=== PATIENT | male | born 1995 ===

== ENCOUNTER 2021-04-26 11:57 | Emergency (ER) | payer OTHER ==
--- NOTE | 2021-04-26 12:31 | EDM.PDOCBH ---
ED HPI GENERAL MEDICAL PROBLEM - General Chief Complaint: Behavioral/Psych Stated Complaint: HUBERT SANCHEZ Time Seen by Provider: 04/26/21 12:11 Source of Information: Reports: Patient History Limitations: Reports: No Limitations - History of Present Illness INITIAL COMMENTS - FREE TEXT/NARRATIVE: HISTORY AND PHYSICAL: History of present illness: The patient is a 6-year-old male who presents to the emergency room in police custody for suicidal ideation. 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 He is from [place]. The patient states that he has a friend in [place] that he wishes was more than just a friend, however she is . He states that he normally talks to his friend in [place] not daily except on weekends as her is home. Yesterday he talked to his friend who told him that she was breaking up with her , however, they were going to act as if nothing was wrong for th e children. The patient states he became more despondent and thoughts of hurting himself became more prominent. The patient states he has these thoughts almost daily. The patient is a and reach out to the crisis line due to his thoughts. The patient has a plan of using a gun to his head. The patient does have ready access to a gun as he has a gun in his truck. The patient states he did attempt suicide by gun 3 years ago on . He states this was the first holiday he did not have his kids after his divorce. The patient states there was no one to intervene and he was able to stop himself. The patient states that he attempted cutting his self approximately a month ago in an effort to open "get out of my head". He states that this did not help as he did not feel it. The patient states that he has been on bipolar and anxiety meds for over a decade. His current bipolar meds he has been on for 3 to 4 months. His current antidepression anxiety meds he has been on for approximately 7 months. The patient has PTSD and is a . The patient states he has hyperthyroidism and has not taken his medication in 2 days as he was in a mood. The patient is currently out of his meloxicam which he takes for his chronic lower back pain. The patient does have a counselor in [place] that he sees via video every 2 weeks, but he states this does not help. Review of systems: As per history of present illness and below otherwise all systems reviewed and negative. Past medical history: As per history of present illness and as reviewed below otherwise n oncontributory. Surgical history: As per history of present illness and as reviewed below otherwise noncontributory. Social history: See social history for further information Family history: As per history of present illness and as reviewed below otherwise noncontributory. Physical exam: General: Well developed and well nourished. Alert and orientated x 3. Nontoxic in appearance and in no acute distress. Vital signs are stable and have been reviewed by me. Nursing notes were reviewed. HEENT: Atraumatic, normocephalic, pupils equal and reactive bilaterally, negative for conjunctival pallor or scleral icterus, mucous membranes moist, TMs normal bilaterally, throat clear, neck supple, nontender, trachea midline. No drooling or trismus noted. No meningeal signs. No hot potato voice noted. Lungs: Clear to auscultation bilaterally. No wheezes, rales, or rhonchi. Chest nontender. Normal work of breathing, no accessory muscles used. Heart: S1S2, regular rate and rhythm without overt murmur, gallops, or rubs. No JVD. No peripheral edema Abdomen: Soft, nondistended, nontender. Normoactive bowel sounds. Negative for masses or costovertebral tenderness. Skin: Intact, warm, dry. Noted faint thin horizontal scars on left inner forearm. Hematologic: No petechiae or purpra. Mucosa appropriate color and normal nail bed color and refill. Extremities: Atraumatic, moves all extremities per self without difficulty or deficits, negative for cords or calf pain. Neurovascular unremarkable. Neuro: Awake, alert, oriented. Cranial nerves II through XII unremarkable. Cerebellum unremarkable. Motor and sensory unremarkable throughout. Exam nonfocal. Psychiatric: Mood depressive state with a flat affect. Normal thought process. Answering questions appropriately. Notes: *This patient was seen and evaluated during the 2019 SARS-CoV-2 novel coronavirus pandemic period. Community viral transmission is ongoing at time of this encounter and the emergency department is operating under pandemic response procedures. As stated above the patient is a 26-year-old male who presents to the emergency department in police custody for thoughts of suicide with a gun. The patient is from [place] and was supposed to be driving but work 3 days ago due to a migraine and personal issues. After talking with the patient I have decided that he is suicidal and he is agreeable to inpatient psych admission. The patient does seem to hedge on stating I think I need help but if I were to leave I would just go home. As the patient has readily access to handguns I will put a hold for psych treatment on the patient. I have ordered a behavioral health work-up. The patient's blood work is unremarkable. The patient's salicylate and acetaminophen levels are within normal limits. The patient's alcohol is less than 3. The patient's drug screen is negative. The patient's TSH is within normal limits. I called my not one call and they do not have a bed. I called [facility] in [place] and talked with Dr. Ashleigh Gomez and they do have a psych bed. I have completed the paperwork for the mental health hold. The patient is to be transferred ported via EMS. The patient's transfer is delayed as we are waiting for EMS transportation. The patient has verbalized wanting to leave and I have informed the patient that due to his suicidal ideation I am unable to let him breathe. The patient is aware that if he leaves we will be forced to call the police and he will be held in nursing home on suicide watch overnight. At present the patient is in bed. EMS is supposed to be available for transportation at 19: 30. The patient is aware. Diagnostics: CBC, CMP, TSH, EtOH, acetaminophen, salicylate, EKG, urine drug screen, urinalysis Therapeutics: Toradol 60 mg IM Impression: Suicidal ideation Definitive disposition and diagnosis as appropriate pending reevaluation and review of above. - Related Data Allergies Allergy/AdvReac Type Severity Reaction Status Date / Time No Known Allergies Allergy Verified 04/26/21 12:22 Home Meds: Home Meds . [Unable to Verify Home Med List] 04/26/21 [History] Past Medical History HEENT History: Reports: None Cardiovascular History: Reports: Hypertension Respiratory History: Reports: None Gastrointestinal History: Reports: None Genitourinary History: Reports: None Musculoskeletal History: Reports: None Neurological History: Reports: None Psychiatric History: Reports: Anxiety, Bipolar, Depression, PTSD Endocrine/Metabolic History: Reports: Hypothyroidism Hematologic History: Reports: None Immunologic History: Reports: None Oncologic (Cancer) History: Reports: None Dermatologic History: Reports: None - Infectious Disease History Infectious Disease History: Reports: None - Past Surgical History Head Surgeries/Procedures: Reports: None HEENT Surgical History: Reports: None Cardiovascular Surgical History: Reports: None Respiratory Surgical History: Reports: None GI Surgical History: Reports: None Male Surgical History: Reports: None Endocrine Surgical History: Reports: None Neurological Surgical History: Reports: None Musculoskeletal Surgical History: Reports: None Oncologic Surgical History: Reports: None Dermatological Surgical History: Reports: None Social & Family History - Family History Family Medical History: No Pertinent Family History - Tobacco Use Tobacco Use Status *Q: Never Tobacco User Second Hand Smoke Exposure: No - Caffeine Use Caffeine Use: Reports: None - Recreational Drug Use Recreational Drug Use: No ED ROS GENERAL - Review of Systems Review Of Systems: Comprehensive ROS is negative, except as noted in HPI. ED EXAM, BEHAVIORAL HEALTH - Physical Exam Exam: See Below (See dictation) COURSE, BEHAVIORAL HEALTH COMP - Course Vital Signs: Last Vital Signs Temp 97.5 F 04/26/21 12:20 Pulse 80 04/26/21 17:08 Resp 18 04/26/21 12:20 BP 139/77 04/26/21 17:08 Pulse Ox 95 04/26/21 17:08 Orders, Labs, Meds: Active Orders 24 hr Category Date Time Status Suicide Precautions [OM.PC] Q30M Ot 04/26/21 12:30 Ordered Suicide Precautions [OM.PC] Q30M Ot 04/26/21 13:00 Ordered Suicide Precautions [OM.PC] Q30M Ot 04/26/21 13:30 Ordered Suicide Precautions [OM.PC] Q30M Oth 04/26/21 14:00 Ordered Suicide Precautions [OM.PC] Q30M Oth 04/26/21 14:30 Ordered Suicide Precautions [OM.PC] Q30M Oth 04/26/21 15:00 Ordered Suicide Precautions [OM.PC] Q30M Ot 04/26/21 15:30 Ordered Suicide Precautions [OM.PC] Q30M Oth 04/26/21 16:00 Ordered Suicide Precautions [OM.PC] Q30M Ot 04/26/21 16:30 Ordered Suicide Precautions [OM.PC] Q30M Oth 04/26/21 17:00 Ordered Suicide Precautions [OM.PC] Q30M Ot 04/26/21 17:30 Ordered Suicide Precautions [OM.PC] Q30M Ot 04/26/21 18:00 Ordered Suicide Precautions [OM.PC] Q30M Ot 04/26/21 18:30 Ordered Suicide Precautions [OM.PC] Q30M Ot 04/26/21 19:00 Ordered Suicide Precautions [OM.PC] Q30M Ot 04/26/21 19:30 Ordered Laboratory Tests 04/26/21 04/26/21 04/26/21 Range/Units 12:30 12:31 12:37 WBC (4.0-11.0) K/uL RBC (4.50-5.90) M/uL Hgb (13.0-17.0) g/dL Hct (38.0-50.0) % MCV (80.0-98.0) fL MCH (27.0-32.0) pg MCHC (31.0-37.0) g/dL RDW Std Deviation (28.0-62.0) fl RDW Coeff of Tram (11.0-15.0) % Plt Count (150-400) K/uL MPV (7.40-12.00) fL Neut % (Auto) (48.0-80.0) % Lymph % (Auto) (16.0-40.0) % [place] % (Auto) (0.0-15.0) % Eos % (Auto) (0.0-7.0) % Baso % (Auto) (0.0-1.5) % Neut # (Auto) (1.4-5.7) K/uL Lymph # (Auto) (0.6-2.4) K/uL [place] # (Auto) (0.0-0.8) K/uL Eos # (Auto) (0.0-0.7) K/uL Baso # (Auto) (0.0-0.1) K/uL Nucleated RBC % /100WBC Nucleated RBCs # K/uL Sodium (136-148) mmol/L Potassium (3.5-5.1) mmol/L Chloride (98-107) mmol/L Carbon Dioxide (21.0-32.0) mmol/L BUN (7.0-18.0) mg/dL Creatinine (0.8-1.3) mg/dL Est Cr Clr Drug Dosing mL/min Estimated GFR (MDRD) ml/min Glucose (74-106) mg/dL Calcium (8.5-10.1) mg/dL Magnesium (1.8-2.4) mg/dL Total Bilirubin (0.2-1.0) mg/dL AST (15-37) IU/L ALT (14-63) IU/L Alkaline Phosphatase (46-116) U/L Total Protein (6.4-8.2) g/dL Albumin (3.4-5.0) g/dL Globulin (2.6-4.0) g/dL Albumin/Globulin Ratio (0.9-1.6) TSH, Ultra Sensitive (0.36-3.74) uIU/mL Urine Color YELLOW Urine Appearance CLEAR Urine pH 7.5 (5.0-8.0) Ur Specific [place] 1.025 (1.001-1.035) Urine Protein NEGATIVE (NEGATIVE) mg/dL Urine Glucose (UA) NEGATIVE (NEGATIVE) mg/dL Urine Ketones NEGATIVE (NEGATIVE) mg/dL Urine Occult Blood NEGATIVE (NEGATIVE) Urine Nitrite NEGATIVE (NEGATIVE) Urine Bilirubin NEGATIVE (NEGATIVE) Urine Urobilinogen 0.2 (<2.0) EU/dL Ur Leukocyte Esterase NEGATIVE (NEGATIVE) Urine RBC 0-1 (0-2/HPF) Urine WBC 0-2 (0-5/HPF) Ur Epithelial Cells RARE (NONE-FEW) Urine Bacteria RARE (NEGATIVE) Salicylates (0-20) mg/dL Urine Opiates Screen NEGATIVE (NEGATIVE) Ur Oxycodone Screen NEGATIVE (NEGATIVE) Urine Methadone Screen NEGATIVE (NEGATIVE) Acetaminophen ug/mL Ur Barbiturates Screen NEGATIVE (NEGATIVE) Ur Phencyclidine Scrn NEGATIVE (NEGATIVE) Ur Amphetamine Screen NEGATIVE (NEGATIVE) U Methamphetamines Scrn NEGATIVE (NEGATIVE) U Benzodiazepines Scrn NEGATIVE (NEGATIVE) U Cocaine Metab Screen NEGATIVE (NEGATIVE) U Marijuana (THC) Screen NEGATIVE (NEGATIVE) Ethyl Alcohol mg/dL SARS-CoV-2 RNA ([place]) NEGATIVE (NEGATIVE) 04/26/21 04/26/21 Range/Units 12:39 12:39 WBC 9.45 (4.0-11.0) K/uL RBC 5.46 (4.50-5.90) M/uL Hgb 16.0 (13.0-17.0) g/dL Hct 48.5 (38.0-50.0) % MCV 88.8 (80.0-98.0) fL MCH 29.3 (27.0-32.0) pg MCHC 33.0 (31.0-37.0) g/dL RDW Std Deviation 42.5 (28.0-62.0) fl RDW Coeff of Tram 13 (11.0-15.0) % Plt Count 202 (150-400) K/uL MPV 12.50 H (7.40-12.00) fL Neut % (Auto) 59.8 (48.0-80.0) % Lymph % (Auto) 31.6 (16.0-40.0) % [place] % (Auto) 6.7 (0.0-15.0) % Eos % (Auto) 1.6 (0.0-7.0) % Baso % (Auto) 0.3 (0.0-1.5) % Neut # (Auto) 5.7 (1.4-5.7) K/uL Lymph # (Auto) 3.0 H (0.6-2.4) K/uL [place] # (Auto) 0.6 (0.0-0.8) K/uL Eos # (Auto) 0.2 (0.0-0.7) K/uL Baso # (Auto) 0.0 (0.0-0.1) K/uL Nucleated RBC % 0.0 /100WBC Nucleated RBCs # 0 K/uL Sodium 141 (136-148) mmol/L Potassium 4.0 (3.5-5.1) mmol/L Chloride 104 (98-107) mmol/L Carbon Dioxide 29.2 (21.0-32.0) mmol/L BUN 14 (7.0-18.0) mg/dL Creatinine 1.1 (0.8-1.3) mg/dL Est Cr Clr Drug Dosing 129.25 mL/min Estimated GFR (MDRD) > 60.0 ml/min Glucose 99 (74-106) mg/dL Calcium 9.3 (8.5-10.1) mg/dL Magnesium 2.2 (1.8-2.4) mg/dL Total Bilirubin 0.7 (0.2-1.0) mg/dL AST 23 (15-37) IU/L ALT 54 (14-63) IU/L Alkaline Phosphatase 62 (46-116) U/L Total Protein 8.2 (6.4-8.2) g/dL Albumin 4.7 (3.4-5.0) g/dL Globulin 3.5 (2.6-4.0) g/dL Albumin/Globulin Ratio 1.3 (0.9-1.6) TSH, Ultra Sensitive 2.42 (0.36-3.74) uIU/mL Urine Color Urine Appearance Urine pH (5.0-8.0) Ur Specific [place] (1.001-1.035) Urine Protein (NEGATIVE) mg/dL Urine Glucose (UA) (NEGATIVE) mg/dL Urine Ketones (NEGATIVE) mg/dL Urine Occult Blood (NEGATIVE) Urine Nitrite (NEGATIVE) Urine Bilirubin (NEGATIVE) Urine Urobilinogen (<2.0) EU/dL Ur Leukocyte Esterase (NEGATIVE) Urine RBC (0-2/HPF) Urine WBC (0-5/HPF) Ur Epithelial Cells (NONE-FEW) Urine Bacteria (NEGATIVE) Salicylates 0.5 (0-20) mg/dL Urine Opiates Screen (NEGATIVE) Ur Oxycodone Screen (NEGATIVE) Urine Methadone Screen (NEGATIVE) Acetaminophen <2.0 ug/mL Ur Barbiturates Screen (NEGATIVE) Ur Phencyclidine Scrn (NEGATIVE) Ur Amphetamine Screen (NEGATIVE) U Methamphetamines Scrn (NEGATIVE) U Benzodiazepines Scrn (NEGATIVE) U Cocaine Metab Screen (NEGATIVE) U Marijuana (THC) Screen (NEGATIVE) Ethyl Alcohol < 3.0 mg/dL SARS-CoV-2 RNA ([place]) (NEGATIVE) Medications Discontinued Medications Generic Name Dose Route Start Last Admin Trade Name Freq PRN Reason Stop Dose Admin Ketorolac Tromethamine 60 mg 04/26/21 13:15 04/26/21 13:35 Ketorolac 60 Mg/2 Ml Sdv IM 04/26/21 13:16 60 mg ONETIME ONE Administration Departure - Departure Time of Disposition: 13:59 Disposition: DC/Tfer to Psych Hosp/Unit 65 Condition: Good Clinical Impression: Self-harm, Suicidal intent - Discharge Information *PRESCRIPTION DRUG MONITORING PROGRAM REVIEWED*: Not Applicable *COPY OF PRESCRIPTION DRUG MONITORING REPORT IN PATIENT FLORES: Not Applicable Referrals: PCP,None [Ordering Only Provider] - Forms: ED Department Discharge Sepsis Event Note (ED) - Evaluation Sepsis Screening Result: No Definite Risk - Focused Exam Vital Signs: Vital Signs Temp Pulse Resp BP Pulse Ox 04/26/21 17:08 80 139/77 95 04/26/21 13:38 86 147/88 H 97 04/26/21 12:49 83 156/97 H 97 04/26/21 12:20 97.5 F 80 18 149/97 H 98 04/26/21 12:12 79 149/97 H 98 - My Orders Last 24 Hours: My Active Orders 04/26/21 12:30 Suicide Precautions [OM.PC] Q30M 04/26/21 13:00 Suicide Precautions [OM.PC] Q30M 04/26/21 13:30 Suicide Precautions [OM.PC] Q30M 04/26/21 14:00 Suicide Precautions [OM.PC] Q30M 04/26/21 14:30 Suicide Precautions [OM.PC] Q30M 04/26/21 15:00 Suicide Precautions [OM.PC] Q30M 04/26/21 15:30 Suicide Precautions [OM.PC] Q30M 04/26/21 16:00 Suicide Precautions [OM.PC] Q30M 04/26/21 16:30 Suicide Precautions [OM.PC] Q30M 04/26/21 17:00 Suicide Precautions [OM.PC] Q30M 04/26/21 17:30 Suicide Precautions [OM.PC] Q30M 04/26/21 18:00 Suicide Precautions [OM.PC] Q30M 04/26/21 18:30 Suicide Precautions [OM.PC] Q30M 04/26/21 19:00 Suicide Precautions [OM.PC] Q30M 04/26/21 19:30 Suicide Precautions [OM.PC] Q30M - Assessment/Plan Last 24 Hours: My Active Orders 04/26/21 12:30 Suicide Precautions [OM.PC] Q30M 04/26/21 13:00 Suicide Precautions [OM.PC] Q30M 04/26/21 13:30 Suicide Precautions [OM.PC] Q30M 04/26/21 14:00 Suicide Precautions [OM.PC] Q30M 04/26/21 14:30 Suicide Precautions [OM.PC] Q30M 04/26/21 15:00 Suicide Precautions [OM.PC] Q30M 04/26/21 15:30 Suicide Precautions [OM.PC] Q30M 04/26/21 16:00 Suicide Precautions [OM.PC] Q30M 04/26/21 16:30 Suicide Precautions [OM.PC] Q30M 04/26/21 17:00 Suicide Precautions [OM.PC] Q30M 04/26/21 17:30 Suicide Precautions [OM.PC] Q30M 04/26/21 18:00 Suicide Precautions [OM.PC] Q30M 04/26/21 18:30 Suicide Precautions [OM.PC] Q30M 04/26/21 19:00 Suicide Precautions [OM.PC] Q30M 04/26/21 19:30 Suicide Precautions [OM.PC] Q30M
[2021-04-26 13:14] LABS: ACETAMINOPHEN <2.0 ug/mL; BLOOD UREA NITROGEN,BUN 14 mg/dL (7.0-18.0); CARBON DIOXIDE,CO2 29.2 mmol/L (21.0-32.0); CHLORIDE,CL 104 mmol/L (98-107); GLUCOSE RANDOM 99 mg/dL (74-106); SODIUM,NA 141 mmol/L (136-148)
[2021-04-26] MEDS ORDERED: Ketorolac 60 MG/2 ML SDV IM ONE (13:15)
--- NOTE | 2021-04-26 13:50 | PCM.EKG ---
#1 Interpretation EKG Date: 04/26/21 Time: 13:36 Rhythm: NSR Rate (Beats/Min): 79 [place]: Normal P-Wave: Present QRS: Normal ST-T: Normal QT: Normal Comparison: NA - No Prior EKG EKG Interpretation Comments: Sinus Rhythm
== END 2021-04-26 19:48 ==
LOC: MW.ED 11:57
DX: F32.9 Major depressive disorder, single episode, unspecified (principal); I10 Essential (primary) hypertension; Z20.822 Contact with and (suspected) exposure to COVID-19
CPT/HCPCS: 36415; 80053; 80143; 80179; 80305; 80307; 81001; 83735; 84443; 85025; 87635; 93005; 96372; 99285; J1885; U0002